=== PATIENT | male | born 1960 | race Caucasian/White ===

== ENCOUNTER 2020-02-22 13:04 | Outpatient (REF) | payer OTHER, SELFPAY ==
[2020-02-22 13:47] LABS: COVID-19 Test Negative (Negative)
== END 2020-02-22 13:05 | disposition home or self-care (01) ==
LOC: HO.EMPCOV 13:04
PROVIDERS: Visit Provider Internal Medicine
DX: Z20.828 Contact with and (suspected) exposure to other viral communicable diseases (principal)
CPT/HCPCS: 87635; C9803

== ENCOUNTER 2021-10-20 13:20 | Outpatient (REF) | payer OTHER, SELFPAY ==
--- NOTE | ~2021-10-20 | US_ITS ---
EXAMINATION: US THYROID CLINICAL INFORMATION: History of thyroid cancer. COMPARISON: Ultrasound soft tissue head/neck thyroid dated 04/14/2015. TECHNIQUE: Linear transducer grayscale and color Doppler examination with attention to the region of the thyroid. FINDINGS: SIZE: Measurements of the solitary left thyroid lobe and nodules are given in sagittal, anteroposterior and transverse dimensions respectively. Right Thyroid Lobe: Surgically absent. No suspicious soft tissue in the thyroidectomy bed. Left Thyroid Lobe: 4.6 x 1.6 x 2.0 cm, volume 7.7 mL. Previously 4.8 x 1.4 x 2.0 cm, volume 7.3 mL. Parenchyma: The gland echotexture is homogeneous. Thyroid vascularity is normal. Isthmus: 0.5 cm in maximum AP dimension. Previously 0.4 cm. No focal thyroid nodule is seen. NODES: No lymphadenopathy is seen in the tissue surrounding the thyroid gland. US/US thyroid IMPRESSION: Status post right hemithyroidectomy without suspicious soft tissue in the thyroidectomy bed. ACR TI-RADS RECOMMENDATION REFERENCE: Ultrasound-guided fine-needle aspiration, followup ultrasound, no further follow up. * TR1 (0 point) and TR 2 (2 points): No FNA or follow up * TR3 (3 points): FNA if more than or equal to 2.5 cm in maximum dimension, followup ultrasound in 1, 3 and 5 years if 1.5 to 2.4 cm in maximum dimension. * TR4 (4-6 points): FNA if more than or equal to 1.5 cm in maximum dimension, followup ultrasound in 1, 2, 3 and 5 years if 1 to 1.4 cm in maximum dimension. * TR5 (more than or equal to 7 points): FNA if more than or equal to 1 cm in maximum dimension, followup ultrasound every year for 5 years if 0.5 to 0.9 cm in maximum dimension. * TR3, TR4 or TR5 nodules that are below the size threshold for follow up receive no follow up.
== END 2021-10-20 13:21 | disposition home or self-care (01) ==
LOC: HO.US 13:20
PROVIDERS: Visit Provider Internal Medicine
DX: Z85.850 Personal history of malignant neoplasm of thyroid (principal)
CPT/HCPCS: 76536

== ENCOUNTER 2021-11-15 09:52 | Outpatient (REF) | payer OTHER, SELFPAY ==
[2021-11-15 10:34] LABS: MANUAL DIFF FLAG NO
[2021-11-15 10:54] LABS: Basophils Percent Auto 0.3 % (0-2); Eosinophils Absolute Auto 0.1 X10*3/uL (0.0-0.4); Eosinophils Percent Auto 0.9 % (0-4); Hematocrit 41.4 % (42.0-52.0); Hemoglobin 13.9 g/dl (14.0-18.0); Imm Gran Abs Auto 0.05 X10*3/uL (0.00-0.03); Imm Gran Pct Auto 0.8 % (0.0-0.4); Lymphocytes Percent Auto 30.4 % (20-40); Mean Corpuscular HGB Conc 33.6 g/dl (31.0-36.0); Mean Corpuscular Hemoglobin 30.9 pg (27.0-33.0); Mean Platelet Volume 10.1 fL (9.4-12.4); Monocytes Absolute Auto 0.5 X10*3/uL (0.1-1.2); Monocytes Percent Auto 7.7 % (2-11); Neutrophils Percent Auto 59.9 % (45-73); Platelet Count 205 X10*3/uL (160-400); Red Cell Distribution Width 12.9 % (11.0-16.0); White Blood Count 6.7 X10*3/uL (4.8-10.8)
[2021-11-15 11:21] LABS: Alanine Aminotransferase 27 U/L (0-40); Albumin Level 4.7 g/dL (3.5-5.0); Alkaline Phosphatase 63 U/L (39-117); Anion Gap 12 (12-20); Aspartate Amino Transferase 23 U/L (5-37); Bilirubin Total 0.8 mg/dL (0.0-1.0); Blood Urea Nitrogen 18 mg/dL (9-16); Carbon Dioxide 27 mmol/L (22-29); Chloride 104 mmol/L (96-108); Cholesterol 142 mg/dL; Estimated Glomerular Filt Rate > 60; Glucose Fasting 95 mg/dL (60-99); HDL Cholesterol 39 mg/dL; LDL Cholesterol Calculated 84 mg/dl; Potassium 4.3 mmol/L (3.3-5.1); Sodium 139 mmol/L (135-145); Total Protein 6.8 g/dL (6.5-8.0); Triglycerides 95 mg/dL
[2021-11-15 11:46] LABS: Free T4 (Free Thyroxine) 1.26 ng/dL (0.71-1.85); Prostate Specific Antigen Scr 0.18 ng/mL (<0.05-4.0); Thyroid Stimulating Hormone 0.38 uIU/mL (0.32-4.0)
== END 2021-11-15 09:53 | disposition home or self-care (01) ==
LOC: HO.10HDL 09:52
PROVIDERS: Visit Provider Internal Medicine
DX: Z00.00 Encounter for general adult medical examination without abnormal findings (principal); Z12.5 Encounter for screening for malignant neoplasm of prostate; E03.9 Hypothyroidism, unspecified
CPT/HCPCS: 36415; 80053; 80061; 84153; 84439; 84443; 85025

== ENCOUNTER 2023-01-04 06:32 | Day surgery (SDC) | payer OTHER, SELFPAY ==
[2023-01-02 15:02] VITALS: BMI 30.9
--- NOTE | 2023-01-03 08:53 | HO.ANESPROP2 ---
Documented by User: Argentina Ritchie NP 01/03/23 08:53 HPI - Anesthesia Eval Consult details Narrative: 62yo M for Colonoscopy [facility] Active Problems Active Problems: All Active Problems (Updated 01/02/23 @ 14:57 by Selin Reagan RN) Conjunctivitis (Acute) Cough (Acute) Past Medical History Medical History (Updated 01/02/23 @ 14:57 by Selin Reagan RN) Elevated cholesterol HTN (hypertension) Thyroid cancer Surgical History Surgical History (Updated 01/02/23 @ 14:57 by Selin Reagan RN) Hx of partial thyroidectomy History of esophagogastroduodenoscopy (EGD) H/O colonoscopy Social History (Updated 01/02/23 @ 14:58 by Selin Reagan RN) Patient Tobacco Use Status: Never used Tobacco Use of substances other than those prescribed or required for medical reasons: No Are you DNR?: No Advance Directives: No Advance Directives Information Provided: Yes Meds Allergies Allergy/AdvReac Type Severity Reaction Status Date / Time No Known Allergies Allergy Unverified 11/12/19 18:54 [No Known Allergies*] Home Medications Medication Instructions Recorded Confirmed Last Taken Type atorvastatin 10 mg tablet 10 mg PO DAILY 01/02/23 01/02/23 Unknown History levothyroxine 112 mcg tablet 112 mcg PO DAILY 01/02/23 01/04/23 01/04/23 History lisinopril 10 mg tablet 10 mg PO DAILY 01/02/23 01/02/23 Unknown History omeprazole 20 mg capsule,delayed 20 mg PO 2XW 01/02/23 01/02/23 Unknown History release Exam Exam Date and Time: January 03, 2023 0853 Height,Weight and Vital Signs: Height 5 ft 7 in Weight 89.358 kg Assessment and Plan Assessment Anesthesia Assessment: Chart Reviewed Documented by User: Phani Martinez MD 01/17/23 17:45 PMFSH Past Medical History Medical History (Updated 01/02/23 @ 14:57 by Selin Reagan RN) Elevated cholesterol HTN (hypertension) Thyroid cancer Functional capacity: independent ambulation Family History Family history of problems with anesthesia: No Surgical History Surgical History (Updated 01/02/23 @ 14:57 by Selin Reagan RN) Hx of partial thyroidectomy History of esophagogastroduodenoscopy (EGD) H/O colonoscopy History of Problems with Anesthesia: No Social History (Updated 01/02/23 @ 14:58 by Selin Reagan RN) Patient Tobacco Use Status: Never used Tobacco Use of substances other than those prescribed or required for medical reasons: No Are you DNR?: No Advance Directives: No Advance Directives Information Provided: Yes Meds Allergies Allergy/AdvReac Type Severity Reaction Status Date / Time No Known Allergies Allergy Unverified 11/12/19 18:54 [No Known Allergies*] Home Medications Medication Instructions Recorded Confirmed Last Taken Type atorvastatin 10 mg tablet 10 mg PO DAILY 01/02/23 01/02/23 Unknown History levothyroxine 112 mcg tablet 112 mcg PO DAILY 01/02/23 01/04/23 01/04/23 History lisinopril 10 mg tablet 10 mg PO DAILY 01/02/23 01/02/23 Unknown History omeprazole 20 mg capsule,delayed 20 mg PO 2XW 01/02/23 01/02/23 Unknown History release Exam Airway Mallampati Class: III Loose/Missing/Broken Teeth: Yes Assessment and Plan Assessment Anesthesia Assessment: Anesthesia Plan Discussed Final Anesthetic Review Family History of Problems with Anesthesia: No History of Problems with Anesthesia: No NPO: Yes ASA Class: II Final Preanesthetic Review: Meds/Allgs Chart Reviewed, Consent Obtained/Reviewed and Anes Risks/Benef Reviewed Patient Risk: Intermediate Procedure Risk: Intermediate Anesthetic Plan Anesthetic Plan: MAC: and Agree w/ Assess. and Plan Disposition: Standard PACU
[2023-01-04 06:41] VITALS: BP 143/81; PULSE 93; RESP 16; TEMP 36.8; O2SAT 100
[2023-01-04] MEDS: Lactated Ringers 1,000 ML 100 ML IVCONT (07:06)
[2023-01-04 08:25] VITALS: BP 108/67; PULSE 75; RESP 13; TEMP 36.1; O2SAT 98
--- NOTE | 2023-01-04 08:25 | PM.OP ---
Brief Operative Note Date of Service: 01/04/23 Pre-op diagnosis: Screening Post-op diagnosis: other (Diverticulosis) Procedure: Colonoscopy to the cecum and TI Surgeon: Ricardo Baron MD Anesthesia: MAC Was an Athletic Gear Custodian used for this Procedure?: No Estimated blood loss (mL): 0 Pathology: none sent Condition: stable Disposition: PACU
[2023-01-04 08:44] VITALS: BP 121/78; PULSE 81; RESP 18; TEMP 36.1; O2SAT 99
--- NOTE | 2023-01-04 08:55 | OP_ITS ---
DATE OF SERVICE: 01/04/2023 SURGEON: Ricardo Baron MD INDICATIONS: The patient presents for evaluation of colorectal cancer screening. Full consent has been obtained from him for this, including risks of bleeding and perforation. PREOPERATIVE DIAGNOSIS: Colorectal cancer screening. POSTOPERATIVE DIAGNOSIS: PROCEDURE PERFORMED: Colonoscopy to the cecum and terminal ileum. ESTIMATED BLOOD LOSS: COMPLICATIONS: ANESTHESIA: Monitored anesthesia care. ASSISTANTS: SPECIMENS: POSTOPERATIVE DIAGNOSES: Colorectal cancer screening, mild sigmoid diverticulosis, small internal hemorrhoids. DESCRIPTION OF PROCEDURE: The patient was placed in the left lateral decubitus position. The digital rectal exam revealed no abnormalities. The Olympus video pediatric colonoscope was entered into the rectum and advanced easily to the cecum. Once in the cecum, I did identify normal-appearing cecal pouch with appendiceal orifice and a normal-appearing ileocecal valve. The terminal ileum was cannulated and appeared normal. The scope was withdrawn back in the colon. The entire cecum and ileocecal valve appeared normal. The scope was then slowly withdrawn assessing all mucosal surfaces carefully. Preparation was excellent. I did not visualize any sign of polyps, colitis, nor angiodysplasia. There was a mild amount of sigmoid diverticulosis. In the rectum, the scope was retroflexed visualizing small internal hemorrhoids but no other pathology. The rectal mucosa appeared normal. The scope was straightened and withdrawn from the patient. He tolerated the procedure well and was returned to the recovery area in stable condition. IMPRESSION: 1. Mild sigmoid diverticulosis. 2. Small internal hemorrhoids. PLAN: Given today's negative exam and no family history of colorectal cancer, I did recommend a followup colonoscopy in 10 years for further screening. He will otherwise see me on a p.r.n. basis. MD DIANA Ritchie/STORMY / [phone] [email or web address]
== END 2023-01-04 09:20 | disposition home or self-care (01) ==
PROVIDERS: PCP Internal Medicine; Visit Provider Internal Medicine
PROC: 0DJD8ZZ Inspection of Lower Intestinal Tract, Via Natural or Artificial Opening Endoscopic (ICD-10-PCS; CPT 45378; principal; 2023-01-04 07:30)
DX: Z12.11 Encounter for screening for malignant neoplasm of colon (principal); K57.30 Diverticulosis of large intestine without perforation or abscess without bleeding; K64.8 Other hemorrhoids; Z83.719 Family history of colon polyps, unspecified; I10 Essential (primary) hypertension; E78.00 Pure hypercholesterolemia, unspecified; K22.2 Esophageal obstruction; Z85.850 Personal history of malignant neoplasm of thyroid; Z79.899 Other long term (current) drug therapy
CPT/HCPCS: 45378; J2250; J2704